=== PATIENT | female | born 1980 | race Asian ===

== ENCOUNTER 2018-03-02 13:55 | Emergency (ER) | payer BC ==
--- NOTE | 2018-03-02 16:02 | ER Document Report ---
ED Eye Complaint - General Chief Complaint: Eye Pain Stated Complaint: POSSIBLE EYE INFECTION Time Seen by Provider: 03/02/18 15:56 Mode of Arrival: Ambulatory Notes: 37-year-old female presented ED for complaint of left eye pain and irritation for week. She states she has had a stye for more than a week but it just started hurting about 7 days ago. She states that the eye on top and lower started swelling about 3 or 4 days ago. She states it has been draining for a couple days. She also has a bump on her face it has been about 6 or 8 months. TRAVEL OUTSIDE OF THE [place] IN LAST 30 DAYS: No - HPI Onset: Last week Eye location: Left Injury: No Quality of pain: Burning, Pressure, Sharp Severity: Moderate Pain Level: 3 Associated symptoms: Burning, Itching, Pain, Matting, Eyelid swelling - Related Data Allergies/Adverse Reactions: No Known Allergies Allergy (Verified 03/02/18 13:58) Past Medical History - General Information source: Patient - Social History Smoking Status: Current Every Day Smoker Cigarette use (# per day): Yes - 7 cig a day Chew tobacco use (# tins/day): No Smoking Education Provided: Yes - 4 min Frequency of alcohol use: Social Drug Abuse: None Occupation: call center Lives with: Friend Family History: Reviewed & Not Pertinent Patient has suicidal ideation: No Patient has homicidal ideation: No - Past Medical History Cardiac Medical History: Reports: None Pulmonary Medical History: Reports: None Neurological Medical History: Reports: None Endocrine Medical History: Reports: Hx Diabetes Mellitus Type 2 Renal/ Medical History: Reports: None Malignancy Medical History: Reports: None GI Medical History: Reports: None Musculoskeletal Medical History: Reports Hx Musculoskeletal Deformity, Reports Hx Musculoskeletal Trauma Skin Medical History: Reports None Psychiatric Medical History: Reports: None Traumatic Medical History: Reports: Hx Fractures - finger Infectious Medical History: Reports: None Past Surgical History: Reports: Hx Cholecystectomy, Hx Orthopedic Surgery - carpal tunnel - Immunizations Hx Diphtheria, Pertussis, Tetanus Vaccination: No Review of Systems - Review of Systems Constitutional: No symptoms reported EENT: Eye pain, Eye discharge, Blurred vision Cardiovascular: No symptoms reported Respiratory: No symptoms reported Gastrointestinal: No symptoms reported Genitourinary: No symptoms reported Female Genitourinary: No symptoms reported Musculoskeletal: No symptoms reported Skin: No symptoms reported Hematologic/Lymphatic: No symptoms reported Neurological/Psychological: No symptoms reported Physical Exam - Vital signs Vitals: Temp Pulse Resp BP Pulse Ox 98.7 F 73 20 150/99 H 98 03/02/18 14:31 03/02/18 14:31 03/02/18 14:31 03/02/18 14:31 03/02/18 14:31 Interpretation: Normal - General General appearance: Appears well, Alert - HEENT Head: Normocephalic, Atraumatic Eyes: Normal. No: Pale conjunctiva, Periorbital ecchymosis, Periorbital edema Conjunctiva: Injected, Purulent discharge Cornea: No: Corneal ulcer, Dendrite, Embedded foreign body, Flourescein stain uptake, Opacified, Superficial foreign body Pupils: PERRL Visual acuity- Right eye: 20/15 Visual acuity- Left eye: 20/20 Visual acuity- Both eyes: 20/20 Corrective lenses worn: No Ears: Normal External canal: Normal Tympanic membrane: Normal Sinus: Normal Nasal: Normal Mouth/Lips: Normal Mucous membranes: Normal Pharynx: Normal Neck: Normal - Respiratory Respiratory status: No respiratory distress Chest status: Nontender Breath sounds: Normal Chest palpation: Normal - Cardiovascular Rhythm: Regular Heart sounds: Normal auscultation Murmur: No - Abdominal Inspection: Normal Distension: No distension Bowel sounds: Normal Tenderness: Nontender Organomegaly: No organomegaly - Back Back: Normal, Nontender - Extremities General upper extremity: Normal inspection, Nontender, Normal color, Normal ROM , Normal temperature General lower extremity: Normal inspection, Nontender, Normal color, Normal ROM , Normal temperature, Normal weight bearing. No: Gregory's sign - Neurological Neuro grossly intact: Yes Cognition: Normal Orientation: AAOx4 [place] Coma Scale Eye Opening: Spontaneous Elissa Coma Scale Verbal: Oriented [place] Coma Scale Motor: Obeys Commands [place] Coma Scale Total: 15 Speech: Normal Motor strength normal: LUE, RUE, LLE, RLE Sensory: Normal - Psychological Associated symptoms: Normal affect, Normal mood - Skin Skin Temperature: Warm Skin Moisture: Dry Skin Color: Normal Course - Vital Signs Vital signs: Temp Pulse Resp BP Pulse Ox 98.7 F 85 20 160/90 H 99 03/02/18 14:31 03/02/18 14:32 03/02/18 14:31 03/02/18 16:18 03/02/18 14:32 Discharge - Discharge Clinical Impression: Sty, external Qualifiers: Laterality: left Eyelid: upper Qualified Code(s): H00.014 - Hordeolum externum left upper eyelid Condition: Stable Disposition: HOME, SELF-CARE Additional Instructions: Sty Your examination reveals that you have a sty. This is an infection of a hair follicle in the eyelid. As the infection progresses, it forms an abscess along the edge of the eyelid. A sty causes a lot of swelling and tenderness. As the body fights the infection, a lump forms. The knot slowly goes away over a couple of weeks. Treatment includes applying warm compresses to the eye for 10 to 15 minutes every two or three hours. Usually, the infection will drain from the abscess spontaneously, however, some sties require surgical drainage. You may be given antibiotic eye drops to prevent the infection from spreading to the surface of the eye. If the doctor is concerned that the infection is severe, you may be given antibiotics by mouth or shot. Call the doctor at once if vision decreases, if swelling becomes severe, or if eye pain becomes severe. See the doctor for follow-up should you fail to improve as expected. EYEDROP USE: Eyedrops are most easily applied by pulling down on the cheek just below the lower eyelid. The lower lid will pop out to form a pouch into which you can drop the medicine. A small brief sting is not unusual, especially if the eye is reddened and irritated already. Use the drops exactly as recommended. You should see the doctor at once if there is a decrease in vision, swelling of the eye, or an increase in discomfort. ANTIBIOTIC THERAPY: You have been given an antibiotic prescription. It's important that you take all the medication, unless instructed otherwise by your physician. Failure to complete the entire course can result in relapse of your condition. Common side effects of antibiotics include nausea, intestinal cramping, or diarrhea. Women may develop vaginal yeast infections, and babies can get yeast (thrush) in the mouth following the use of antibiotics. Contact your physician if you develop significant side effects from this medication. Allergy to this antibiotic can result in hives, wheezing, faintness, or itching. If symptoms of allergy occur, stop the medication and call the doctor. Warm Packs After approximately two days, apply gentle heat (such as a heating pad or hot water bottle) for about 20 to 30 minutes about every two hours -- at least four times daily. Warmth and elevation will help you make a more rapid recovery , and will ease the pain considerably. Do not use HOT heat, and never apply heat for longer than 30 minutes. The continuous heat can invisibly damage skin and muscles -- even when no burn is seen on the surface. Damaged muscles can make you MORE sore. FOLLOW-UP CARE: If you have been referred to a physician for follow-up care, call the physician s office for an appointment as you were instructed or within the next two days. If you experience worsening or a significant change in your symptoms, notify the physician immediately or return to the Emergency Department at any time for re-evaluation. Prescriptions: Gentamicin Sulfate [Garamycin 0.3% Oph Soln 5 ml] 1 drop LFT_EYE QID #1 bottle Forms: Elevated Blood Pressure, Smoking Cessation Education, Return to Work Referrals: ALIREZA CHAMBERLAIN, DO [ACTIVE STAFF] - Follow up as needed
[2018-03-02] MEDS ORDERED: IBUPROFEN 800 MG TABLET PO ONE (16:06)
[2018-03-02] MEDS ORDERED: GENTAMICIN SULFATE 0.3% OPH SOLN (5 ML/ER DISP) OS ONE (16:15)
[2018-03-02 16:19] VITALS: BP 160/90
[2018-03-02] MEDS ORDERED: GENTAMICIN SULFATE 0.3% OPH SOLN (5 ML/ER DISP) OS SCH (18:00)
== END 2018-03-02 16:22 | disposition home or self-care (01) ==
LOC: ER 13:55
DX: H00.014 Hordeolum externum left upper eyelid (principal); H57.12 Ocular pain, left eye; F17.210 Nicotine dependence, cigarettes, uncomplicated; E11.9 Type 2 diabetes mellitus without complications; Z90.49 Acquired absence of other specified parts of digestive tract
CPT/HCPCS: 99406; 99283; J3490

== ENCOUNTER 2018-03-13 03:16 | Emergency (ER) | payer BC ==
[2018-03-13 03:22] VITALS: BP 137/91
--- NOTE | 2018-03-13 04:07 | ER Document Report ---
ED General - General Chief Complaint: Eye Problem Stated Complaint: EYE PROBLEM Notes: Patient is a pleasant 37-year-old female presents with complaint that she sneezed and felt some bloody drainage coming from around her left eye. Said that has since stopped. She denies any blurred vision. She has no other complaints at this time. She currently denies any pain in her eye at this time. TRAVEL OUTSIDE OF THE [place] IN LAST 30 DAYS: No - Related Data Allergies/Adverse Reactions: No Known Allergies Allergy (Verified 03/02/18 13:58) Past Medical History - Social History Smoking Status: Unknown if Ever Smoked Frequency of alcohol use: None Drug Abuse: None Family History: Reviewed & Not Pertinent Endocrine Medical History: Reports: Hx Diabetes Mellitus Type 2 Renal/ Medical History: Denies: Hx Peritoneal Dialysis Musculoskeletal Medical History: Reports Hx Musculoskeletal Deformity, Reports Hx Musculoskeletal Trauma Traumatic Medical History: Reports: Hx Fractures - finger Past Surgical History: Reports: Hx Cholecystectomy, Hx Orthopedic Surgery - carpal tunnel - Immunizations Hx Diphtheria, Pertussis, Tetanus Vaccination: No Review of Systems - Review of Systems Notes: My Normal Review Basic REVIEW OF SYSTEMS: CONSTITUTIONAL : Denies fever, chills, or sweats. Denies recent illness. EENT: Blood-tinged drainage from around the left eye. HEMATOLOGIC : Denies easy bruising or bleeding. NEUROLOGICAL: Denies altered mental status or loss of consciousness. Denies headache. ALL OTHER SYSTEMS REVIEWED AND NEGATIVE. Physical Exam - Vital signs Vitals: Temp Pulse Resp BP Pulse Ox 98.6 F 90 18 137/91 H 98 03/13/18 03:21 03/13/18 03:21 03/13/18 03:21 03/13/18 03:21 03/13/18 03:21 - Notes Notes: General Appearance: Well nourished, alert, cooperative, no acute distress, no obvious discomfort. Appearing. Vitals: reviewed, See vital signs table. Head: no swelling or tenderness to the head Eyes: PERRL, EOMI, Conjuctiva clear. Hyphema. No pain with extraocular motion. Patient has what appears to be a small area of irritation on the underside of the lateral aspect of the upper lid. This appears consistent with where the patient probably had small capillary rupture which most likely cause the blood-tinged fluid that was coming from her eye. No active bleeding at this time. No foreign body seen. Skin: warm, dry, appropriate color, no rash Neuro: speech clear, oriented x 3, normal affect, responds appropriately to questions. Course - Re-evaluation Re-evalutation: 03/13/18 06:48 Patient's visual acuity is normal. She has no pain with extraocular motion. She has no signs of significant trauma to the eye. I suspect she probably had a small capillary rupture when she coughed is close blood-tinged fluid coming from around the eye. There is a small area of appears to be irritation on the underside of the upper lid over the lateral canthus. Suspect this is where the blood came from. There is no active bleeding at this time I feel she is safe to be discharged home. She is encouraged to return to ER if she has eye pain, blurred vision, or recurrence of her symptoms. Patient agrees with plan will be discharged home. Dictation of this chart was performed using voice recognition software; therefore, there may be some unintended grammatical errors. - Vital Signs Vital signs: Temp Pulse Resp BP Pulse Ox 98.6 F 90 18 137/91 H 98 03/13/18 03:21 03/13/18 03:21 03/13/18 03:21 03/13/18 03:21 03/13/18 03:21 Discharge - Discharge Clinical Impression: Left eye complaint Condition: Good Disposition: HOME, SELF-CARE Additional Instructions: Please return to the ER if you have blurred vision, eye pain, or recurrent bleeding from around your eye.
== END 2018-03-13 04:32 | disposition home or self-care (01) ==
LOC: ER 03:16
DX: H57.8 Other specified disorders of eye and adnexa (principal); E11.9 Type 2 diabetes mellitus without complications
CPT/HCPCS: 99283

== ENCOUNTER 2018-03-26 13:58 | Emergency (ER) | payer BC ==
[2018-03-26] MEDS ORDERED: SULFAMETHOXAZOLE/TRIMETHOPRIM 800-160 MG TABLET PO ONE (14:52)
[2018-03-26] MEDS ORDERED: OXYCODONE-ACETAMINOPHEN 5-325 MG TABLET PO ONE (14:52)
[2018-03-26] MEDS ORDERED: CEPHALEXIN 500 MG CAPSULE PO ONE (14:52)
--- NOTE | 2018-03-26 14:54 | ER Document Report ---
HPI - HPI Patient complains to provider of: Breast infection Onset: Last week Onset/Duration: Persistent Quality of pain: Achy Pain Level: 2 Context: Patient complains of breast infection to the left breast for the past week. Patient denies any fever. Patient did attempt to stick a needle in the area unsuccessfully today. Patient denies any personal history of breast cancer. Associated Symptoms: Other - Left breast infection. denies: Fever Exacerbated by: Denies Relieved by: Denies Similar symptoms previously: No Recently seen / treated by doctor: No - ROS ROS below otherwise negative: Yes Systems Reviewed and Negative: Yes All other systems reviewed and negative - CONSTITUTIONAL Constitutional: DENIES: Fever, Chills - CARDIOVASCULAR Cardiovascular: REPORTS: Chest pain - left breast - REPRODUCTIVE Reproductive: DENIES: : - DERM Skin Color: Erythema Notes: abscess to left breast Past Medical History - General Information source: Patient - Social History Smoking Status: Current Every Day Smoker Smoking Education Provided: Yes Frequency of alcohol use: Occasional Drug Abuse: None Occupation: customer service Family History: Reviewed & Not Pertinent Endocrine Medical History: Reports: Hx Diabetes Mellitus Type 2 Renal/ Medical History: Denies: Hx Peritoneal Dialysis Musculoskeletal Medical History: Reports Hx Musculoskeletal Deformity, Reports Hx Musculoskeletal Trauma Traumatic Medical History: Reports: Hx Fractures - finger Past Surgical History: Reports: Hx Cholecystectomy, Hx Orthopedic Surgery - carpal tunnel - Immunizations Hx Diphtheria, Pertussis, Tetanus Vaccination: No Vertical Provider Document - CONSTITUTIONAL Agree With Documented VS: Yes Exam Limitations: No Limitations General Appearance: WD/WN, No Apparent Distress - INFECTION CONTROL TRAVEL OUTSIDE OF THE [place] IN LAST 30 DAYS: No - HEENT HEENT: Atraumatic, Normocephalic - NECK Neck: Normal Inspection - RESPIRATORY Respiratory: Breath Sounds Normal, No Respiratory Distress - CARDIOVASCULAR Cardiovascular: Regular Rate, Regular Rhythm Pulses: Normal: Radial - BACK Back: Normal Inspection - MUSCULOSKELETAL/EXTREMETIES Musculoskeletal/Extremeties: MAEW - NEURO Level of Consciousness: Awake, Alert, Appropriate Motor/Sensory: No Motor Deficit - DERM Integumentary: Warm, Dry Adult Front & Back Diagram: 1 - Erythematous crusted lesion to the 4 o'clock position of left breast with surrounding erythema concerning for cellulitic abscess. Faint area of erythema does extend upwards towards the 2 o'clock position of the breast Course - Re-evaluation Re-evalutation: 03/26/18 17:[address] Vaelnte regarding patient presentation and diagnostic evaluation. Patient had been given crackers per nursing staff. Dr. Valente recommends giving IV fluids and will be in to evaluate patient. 03/26/18 19:07 Dr. Valente evaluated patient in room and plans to do a conscious sedation incision and drainage procedure to the left breast. Request that consent form be obtained. associate professor of english advised of surgeons plans and patient will be moved to bed 10. 03/26/18 19:42 associate professor of english advised that Dr. Valente is requesting Versed and pain medication to bedside for procedure. RN instructed to call surgeon, so he can discuss what he needs for in room procedure. 03/26/18 21:[address] Valente who states that he will follow up with patient in the office. Agrees with plan to give her pain medication as well as Bactrim and Keflex. 03/26/18 21:[address] Valente who recommends having patient pulled the packing out in the shower tomorrow and irrigate the wound. - Vital Signs Vital signs: Temp Pulse Resp BP Pulse Ox 97.5 F 77 16 140/97 H 99 03/26/18 14:03 03/26/18 14:03 03/26/18 14:03 03/26/18 14:03 03/26/18 14:03 - Laboratory Result Diagrams: 03/26/18 16:30 03/26/18 16:30 Laboratory results interpreted by me: 03/26/18 22:13 Labs- Entire Visit 03/26/18 03/26/18 16:30 16:30 WBC 11.5 H RBC 4.72 Hgb 14.5 Hct 42.3 MCV 90 MCH 30.8 MCHC 34.3 RDW 13.4 Plt Count 304 Seg Neutrophils % 68.1 Lymphocytes % 25.0 Monocytes % 5.2 Eosinophils % 1.1 Basophils % 0.6 Absolute Neutrophils 7.8 Absolute Lymphocytes 2.9 Absolute Monocytes 0.6 Absolute Eosinophils 0.1 Absolute Basophils 0.1 Sodium 142.8 Potassium 4.0 Chloride 106 Carbon Dioxide 25 Anion Gap 12 BUN 10 Creatinine 0.60 Est GFR ( Amer) > 60 Est GFR (Non-Af Amer) > 60 Glucose 137 H Calcium 9.1 - Diagnostic Test Radiology reviewed: Reports reviewed Discharge - Discharge Clinical Impression: Breast abscess Condition: Stable Disposition: HOME, SELF-CARE Instructions: Abscess ([facility]), Cephalexin ([facility]), Oral Narcotic Medication ([facility]), Post Incision and Drainage, Trimethoprim-Sulfa ([facility]) Additional Instructions: Return immediately for any new or worsening symptoms Followup with your primary care provider, call tomorrow to make a followup appointment Remove packing tomorrow in the shower and irrigate wound. Take a stool softener [id number] daily Follow-up with Dr. Valente in the clinic, call Tuesday to make a follow-up appointment. Prescriptions: Cephalexin Monohydrate [Keflex 500 mg Capsule] 500 mg PO Q6H 7 Days capsule Oxycodone HCl/Acetaminophen [Percocet 5-325 mg Tablet] 1 tab PO ASDIR PRN #15 tablet PRN Reason: Sulfamethoxazole/Trimethoprim [Bactrim Ds Tablet] 1 each PO BID #20 tablet Forms: Smoking Cessation Education, Return to Work Referrals: JESSIE VALENTE MD [ACTIVE STAFF] - Follow up in 3-5 days
--- NOTE | 2018-03-26 16:40 | RADIOLOGY REPORT (SQ) ---
EXAM DESCRIPTION: U/S BREAST UNILATERAL LIMITED COMPLETED DATE/TIME: 03/26/2018 3:36 pm REASON FOR STUDY: eval ?abscess COMPARISON: None TECHNIQUE: Ultrasound of the right breast was performed in the area of clinical concern, including c olor flow, grayscale, and cine images saved to pac's. LIMITATIONS: None. FINDINGS: Patient has a palpable abnormality in the right breast 5 o'clock position 5 cm from the ni pple. Ultrasound of this area demonstrates a hypoechoic subcutaneous fluid collection with ill-defin ed margins measuring 3.3 x 3 x 1 cm in size, worrisome for subcutaneous abscess. No deeper breast tissue abnormalities identified at ultrasound IMPRESSION: Hypoechoic fluid collection just deep to the skin surface right breast 5 o'clock positi on 5 cm from the nipple worrisome for abscess. BIRAD: 1 Negative. RECOMMENDATION: RECOMMENDED FOLLOW-UP: Follow-up as clinically indicated. COMMENT: The [employer] ([employer]) has developed recommendations for screening MRI of the breasts in certain patient populations, to be used in conjunction with mammography. Breast MRI s urveillance may be appropriate for women with more than 20% lifetime risk of developing breast cancer as determined by genetic testing, significant family history of the disease, or history of mantle r adiation for Hodgkins Disease. ACR Practice Guidelines 2008. TECHNICAL DOCUMENTATION: FINDING NUMBER: (1) ASSESSMENT: (1) JOB ID: [id number] [employer]- All Rights Reserved Reading location - IP/workstation name: [email or web address]
[2018-03-26 16:46] LABS: ABSOLUTE BASOPHILS # (AUTO) 0.1 10^3/uL (0.0-0.2); ABSOLUTE EOSINOPHILS # (AUTO) 0.1 10^3/uL (0.0-0.6); ABSOLUTE LYMPHOCYTES (AUTO) 2.9 10^3/uL (0.5-4.7); ABSOLUTE MONOCYTES (AUTO) 0.6 10^3/uL (0.1-1.4); ABSOLUTE NEUT (AUTO) 7.8 10^3/uL (1.7-8.2); BASOPHILS % (AUTO) 0.6 % (0-2); EOSINOPHILS % (AUTO) 1.1 % (0-6); HEMATOCRIT 42.3 % (36.0-47.0); HEMOGLOBIN 14.5 g/dL (12.0-15.5); MEAN CORPUSCULAR HEMOGLOBIN 30.8 pg (27.0-33.4); MEAN CORPUSCULAR HGB CONC 34.3 g/dL (32.0-36.0); MEAN CORPUSCULAR VOLUME 90 fl (80-97); MONOCYTES % (AUTO) 5.2 % (3-13); PLATELET COUNT 304 10^3/uL (150-450); RED BLOOD COUNT 4.72 10^6/uL (3.72-5.28); RED CELL DISTRIBUTION WIDTH 13.4 % (11.5-14.0); SEGMENTED NEUTROPHILS % (AUTO) 68.1 % (42-78); TOTAL CELLS COUNTED % (AUTO) 100 %; WHITE BLOOD COUNT 11.5 10^3/uL (4.0-10.5)
[2018-03-26 17:11] LABS: ANION GAP 12 (5-19); BLOOD UREA NITROGEN 10 mg/dL (7-20); CALCIUM 9.1 mg/dL (8.4-10.2); CARBON DIOXIDE 25 mmol/L (22-30); CHLORIDE 106 mmol/L (98-107); GLUCOSE 137 mg/dL (75-110); SODIUM 142.8 mmol/L (137-145)
[2018-03-26] MEDS ORDERED: NORMAL SALINE 1000 ML 1,000 ML IV ONE (17:34)
[2018-03-26] MEDS ORDERED: MIDAZOLAM 2 MG/2 ML INJ IV ONE (19:57)
[2018-03-26] MEDS ORDERED: FENTANYL CITRATE INJ/PF 100 MCG/2 ML AMPUL IV ONE (19:59)
[2018-03-26] MEDS ORDERED: LIDOCAINE 1% INJ-PF (10 MG/ML) 30 ML SDV INJ ONE (20:00)
[2018-03-26] MEDS ORDERED: MIDAZOLAM 2 MG/2 ML INJ ONE (20:34)
[2018-03-26] MEDS ORDERED: MORPHINE SULFATE 10 MG/ML INJ IV ONE (21:06)
--- NOTE | 2018-03-26 21:11 | Operative Report ---
Operative Report DATE OF SURGERY: 03/26/18 PREOPERATIVE DIAGNOSIS: Left breast abscess in diabetic female POSTOPERATIVE DIAGNOSIS: Same suspicious for MRSA infection OPERATION: 1. Operative debridement of left breast abscess including skin and subcutaneous tissue. 2. Culture wound for Gram stain sensitivity. SURGEON: JESSIE MCPHERSON ANESTHESIA: Moderate Sedation TISSUE REMOVED OR ALTERED: Necrotic skin and subcutaneous tissue COMPLICATIONS: None ESTIMATED BLOOD LOSS: Scant INTRAOPERATIVE FINDINGS: See below PROCEDURE: Patient was taken from room 42 to room 10, monitoring devices attached, and preparation made for conscious sedation Surgical plan and surgical timeout conducted The patient was placed in the recumbent position left arm abducted and left breast elevated. The left breast abscess mid to lateral position 4:00 left breast was prepped with Betadine. Appropriate level of conscious sedation was induced. The skin was anesthetized with 1% plain lidocaine using a 22-gauge needle. An ellipse of skin was excised with a #10 blade approximately 2-1/2 cm in diameter. The underlying abscess was broken into, loculations broken up with hemostats, and index finger. Wound irrigated, with excisional debridement using scissors and a #10 blade of several lobules of. Wound cultured and sent for Gram stain sensitivity, wound repacked with moist gauze in the cavity, then cover with dry dressings. Impression: Left breast abscess drained; suspicious for MRSA Recommendations: 1. Patient may be discharged home on p.o. antibiotics; follow-up culture results and tailor antibiotics accordingly 2. Patient to return to [facility] [facility] in 1 week to see EMETERIO Sherwood for wound check 3. Suggested patient remove packing and start dressing changes daily after taking a shower. 4. Pain medicine prescribed by the emergency room provider
[2018-03-26 22:58] VITALS: BP 126/76
== END 2018-03-26 23:03 | disposition home or self-care (01) ==
LOC: ER 13:58
DX: N61.1 Abscess of the breast and nipple (principal); E11.9 Type 2 diabetes mellitus without complications; F17.200 Nicotine dependence, unspecified, uncomplicated
CPT/HCPCS: 99284; 96361; 99153; 99152; 96374; 36415; 87070; 87205; 85025; 87077; 80048; 87186; 76642; 10060; A6266; J2250; J3010; J3490; J2270; J7030

== ENCOUNTER 2018-06-19 21:25 | Emergency (ER) | payer BC ==
[2018-06-20 00:41] VITALS: BP 149/94
[2018-06-20] MEDS ORDERED: LIDOCAINE 1%/EPINEPHRINE INJ 20 ML VIAL INJ ONE (01:31)
--- NOTE | 2018-06-20 02:24 | ER Document Report ---
ED General - General Chief Complaint: Abscess Stated Complaint: POSSIBLE ABSCESS Mode of Arrival: Ambulatory Information source: Patient Notes: 38-year-old female with a history of diabetes and skin cysts the emergency room with swelling to the left face. Patient states it has been going on for a few days. She denies any fever, chills, nausea or vomiting. She denies any redness. TRAVEL OUTSIDE OF THE [place] IN LAST 30 DAYS: No - HPI Onset: Last week Onset/Duration: Gradual Quality of pain: No pain Severity: None Pain Level: Denies Associated symptoms: denies: Chest pain, Fever, Shortness of breath Exacerbated by: Denies Relieved by: Denies Similar symptoms previously: No Recently seen / treated by doctor: No - Related Data Allergies/Adverse Reactions: No Known Allergies Allergy (Verified 06/20/18 00:43) Past Medical History - General Information source: Patient - Social History Smoking Status: Unknown if Ever Smoked Cigarette use (# per day): No Chew tobacco use (# tins/day): No Frequency of alcohol use: None Drug Abuse: None Lives with: Family Family History: Reviewed & Not Pertinent Patient has suicidal ideation: No Patient has homicidal ideation: No - Past Medical History Cardiac Medical History: Reports: None Pulmonary Medical History: Reports: None EENT Medical History: Reports: None Neurological Medical History: Reports: None Endocrine Medical History: Reports: Hx Diabetes Mellitus Type 2 Renal/ Medical History: Denies: Hx Peritoneal Dialysis Musculoskeletal Medical History: Reports Hx Musculoskeletal Deformity, Reports Hx Musculoskeletal Trauma Traumatic Medical History: Reports: Hx Fractures - finger Past Surgical History: Reports: Hx Cholecystectomy, Hx Orthopedic Surgery - carpal tunnel - Immunizations Hx Diphtheria, Pertussis, Tetanus Vaccination: No Review of Systems - Review of Systems Constitutional: denies: Chills, Fever EENT: No symptoms reported Cardiovascular: No symptoms reported Respiratory: No symptoms reported Gastrointestinal: No symptoms reported Genitourinary: No symptoms reported Female Genitourinary: No symptoms reported Musculoskeletal: No symptoms reported Skin: See HPI Hematologic/Lymphatic: No symptoms reported Neurological/Psychological: No symptoms reported Physical Exam - Vital signs Vitals: Temp Pulse Resp BP Pulse Ox 98.5 F 82 16 136/102 H 98 06/19/18 21:41 06/19/18 21:41 06/19/18 21:41 06/19/18 21:41 06/19/18 21:41 Notes: Physical exam: GENERAL: Patient is alert and oriented x3, no acute distress HEAD: Atraumatic, normocephalic. EYES: Pupils equal round and reactive to light, extraocular movements intact, sclera anicteric, conjunctiva are normal. ENT: TMs normal, nares patent, oropharynx clear without exudates. Moist mucous membranes. NECK: Normal range of motion, supple without obvious mass or JVD. Face skin: Patient has a 1 cm area of swelling to the left cheek just lateral to the upper lip. There is no overlying erythema. There is no fluctuance. There is no overlying warmth. There is no drainage. Oral cavity: There is no swelling on the inside of the mouth. No obvious dental caries. Course - Re-evaluation Re-evalutation: 06/20/18 02:51 The drainage from the cyst appeared noninfectious. A wound culture was sent. There was never any overlying warmth or erythema so the suspicion for infection is actually low at this point. Given this we will hold on antibiotics and wait for the wound culture. I have given the patient good instructions to return if this site becomes red, swollen any pus discharge or if she develops fever. I have also given her a referral to the plastic surgeon. - Vital Signs Vital signs: Temp Pulse Resp BP Pulse Ox 98.1 F 79 18 149/94 H 97 06/20/18 00:40 06/20/18 00:40 06/20/18 00:40 06/20/18 00:40 06/20/18 00:40 Procedures - Incision and Drainage Left Face Type: Simple Anesthetic type: 1% Lidocaine w/epi mL's of anesthetic: 5 Blade size: 11 I&D procedure: Shurclens applied Incision Method: Incision made by scalpel Amount/type of drainage: Serosanguineous drainage. No pus. Notes: 06/20/18 02:51 Culture was sent. Discharge - Discharge Clinical Impression: Left facial cyst Condition: Stable Disposition: HOME, SELF-CARE Additional Instructions: As we discussed, the fluid that was liberated today did not appear to be infectious. We did send a wound culture and we will call you if it grows anything out. In the meantime, you can wash the area with soap and water. You can put heat pads over the area if you get any relief or even ice over the area. Return to the emergency room if the swelling increases or if you start developing fever (temperature greater than 100.5) or there is increasing swelling with redness or any concerns or getting worse. Referrals: TAMI DEVI MD [ACTIVE STAFF] - Follow up as needed (This is a number of a plastic surgeon if the area increases in size.)
== END 2018-06-20 02:45 | disposition home or self-care (01) ==
LOC: ER 21:25
DX: L72.9 Follicular cyst of the skin and subcutaneous tissue, unspecified (principal); E11.9 Type 2 diabetes mellitus without complications
CPT/HCPCS: 99283; 87070; 87205; 10060; J3490

== ENCOUNTER 2018-08-04 12:52 | Emergency (ER) | payer BC ==
[2018-08-04] MEDS ORDERED: ACETAMINOPHEN 325 MG TABLET PO ONE (14:06)
--- NOTE | 2018-08-04 14:08 | ER Document Report ---
ED Medical Screen (RME) - General Chief Complaint: Vaginal Pain Stated Complaint: LOW ABDOMINAL PAIN Time Seen by Provider: 08/04/18 14:02 TRAVEL OUTSIDE OF THE [place] IN LAST 30 DAYS: No - HPI Notes: 08/04/18 14:07 Patient is a 38-year-old female that presents to the emergency department for chief complaint of lower abdominal pain. Patient reports sharp lower abdominal pain that started this morning. It is constant with periods of waxing and waning. She states the pain is worse when she urinates but it does not hurt at her vaginal or urethral area with urination. She denies any external vaginal complaints. She denies vaginal discharge. She is nauseated with no vomiting or fevers.. ROS: GENERAL: Denies fever of chills CV: Denies chest pain PHYSICAL EXAMINATION: GENERAL: Well-appearing, well-nourished and in no acute distress. HEAD: Atraumatic, normocephalic. EYES: Pupils equal round extraocular movements intact, conjunctiva are normal. ENT: Nares patent NECK: Normal range of motion LUNGS: No respiratory distress Musculoskeletal: Normal range of motion NEUROLOGICAL: Normal speech, normal gait. PSYCH: Normal mood, normal affect. MDM: Patient seen and examined for rapid initial assessment. Vital signs reviewed. A comprehensive ED assessment and evaluation of the patient, analysis of test results and completion of the medical decision making process will be conducted by additional ED providers. - Related Data Allergies/Adverse Reactions: No Known Allergies Allergy (Verified 06/20/18 00:43) Past Medical History - Social History Chew tobacco use (# tins/day): No Frequency of alcohol use: Social Drug Abuse: None Endocrine Medical History: Reports: Hx Diabetes Mellitus Type 2 Renal/ Medical History: Denies: Hx Peritoneal Dialysis Musculoskeltal Medical History: Reports Hx Musculoskeletal Deformity, Reports Hx Musculoskeletal Trauma Traumatic Medical History: Reports: Hx Fractures - finger Past Surgical History: Reports: Hx Cholecystectomy, Hx Orthopedic Surgery - carpal tunnel - Immunizations Hx Diphtheria, Pertussis, Tetanus Vaccination: No Physical Exam - Vital signs Vitals: Temp Pulse Resp BP Pulse Ox 98.4 F 86 16 140/95 H 98 08/04/18 13:01 08/04/18 13:01 08/04/18 13:01 08/04/18 13:01 08/04/18 13:01 Course - Vital Signs Vital signs: Temp Pulse Resp BP Pulse Ox 98.4 F 86 16 140/95 H 98 08/04/18 13:01 08/04/18 13:01 08/04/18 14:02 08/04/18 13:01 08/04/18 13:01
[2018-08-04 14:51] LABS: AMORPHOUS SEDIMENT,URINE TRACE /HPF; APPEARANCE,URINE CLOUDY; BILIRUBIN,URINE NEGATIVE (NEGATIVE); GLUCOSE, URINE NEGATIVE (NEGATIVE); KETONES,URINE NEGATIVE (NEGATIVE); LEUKOCYTE ESTERASE,URINE NEGATIVE (NEGATIVE); NITRITE,URINE NEGATIVE (NEGATIVE); PROTEIN,URINE NEGATIVE (NEGATIVE); UROBILINOGEN,URINE NEGATIVE mg/dL (<2.0)
[2018-08-04 14:52] LABS: COLOR,URINE YELLOW
--- NOTE | 2018-08-04 15:57 | ER Document Report ---
ED General - General Chief Complaint: Vaginal Pain Stated Complaint: LOW ABDOMINAL PAIN Time Seen by Provider: 08/04/18 14:02 Notes: Patient is a 38-year-old female who presents to the emergency department with a chief complaint of vaginal pain. Her symptoms started this morning. She also has some associated cramping with her symptoms. She states that the Tylenol she was received in triage has helped her. She denies any vaginal bleeding or discharge. She is sexually active. Her last menstrual cycle was 2 weeks ago. She denies any dysuria, vaginal itching, or upper abdominal pain. TRAVEL OUTSIDE OF THE [place] IN LAST 30 DAYS: No - Related Data Allergies/Adverse Reactions: No Known Allergies Allergy (Verified 06/20/18 00:43) Past Medical History - Social History Smoking Status: Current Every Day Smoker Chew tobacco use (# tins/day): No Frequency of alcohol use: Social Drug Abuse: None Family History: Reviewed & Not Pertinent Patient has suicidal ideation: No Patient has homicidal ideation: No Endocrine Medical History: Reports: Hx Diabetes Mellitus Type 2 Renal/ Medical History: Denies: Hx Peritoneal Dialysis Musculoskeletal Medical History: Reports Hx Musculoskeletal Deformity, Reports Hx Musculoskeletal Trauma Traumatic Medical History: Reports: Hx Fractures - finger Past Surgical History: Reports: Hx Cholecystectomy, Hx Orthopedic Surgery - carpal tunnel - Immunizations Hx Diphtheria, Pertussis, Tetanus Vaccination: No Review of Systems - Review of Systems Notes: REVIEW OF SYSTEMS: CONSTITUTIONAL : Denies recent illness. Denies recent unintentional weight loss. Denies fever, chills, or sweats. EENT: Denies eye, ear, throat, or mouth pain, discharge, or symptoms. Denies nasal or sinus congestion. CARDIOVASCULAR: Denies chest pain. RESPIRATORY: Denies shortness of breath, cough, congestion, difficulty breathing, or wheezing. GASTROINTESTINAL: See HPI GENITOURINARY: See HPI FEMALE GENITOURINARY: See HPI MUSCULOSKELETAL: Denies neck and back pain. Denies joint pain or swelling. SKIN: Denies rash, itchiness, or lesions HEMATOLOGIC : Denies easy bruising or bleeding. LYMPHATIC: Denies swollen, painful, enlarged glands. NEUROLOGICAL: Denies no numbness or tingling denies weakness. Denies headache. Denies altered mental status. Denies alteration in speech. PSYCHIATRIC: Denies stress, anxiety, alteration in sleep patterns, or depression. All other systems reviewed and negative. Physical Exam - Vital signs Vitals: Temp Pulse Resp BP Pulse Ox 98.4 F 86 16 140/95 H 98 08/04/18 13:01 08/04/18 13:01 08/04/18 13:08/04/18 13:08/04/18 13:01 - Notes Notes: PHYSICAL EXAMINATION: GENERAL: Appears well, healthy, well-nourished, no acute distress. HEAD: Normocephalic, atraumatic. EYES: PERRL, conjunctiva normal, all extraocular movements intact, sclera nonicteric ENT: Moist mucous membranes. NECK: Supple, no noticeable swelling, redness, rash. Normal range of motion. LUNGS: Equal breath sounds bilaterally and clear to auscultation. No wheezes rales or rhonchi. CARDIOVASCULAR: S1-S2, regular rate, regular rhythm. Radial pulses 2+, normal. ABDOMEN: Normoactive bowel sounds. Soft, tender pelvic area, no guarding, no rebound tenderness, and no masses palpated. EXTREMITIES: Normal strength and range of motion, no pitting or edema. No cyanosis. NEUROLOGICAL: Moves all extremities upon command. Strength 5/5 in all extremities. PSYCH: Normal mood, normal affect. SKIN: Warm, dry. No rash, lesions, ulcerations noted. Normal skin turgor. FOUNDRY FINISHER: Discharge noted that was milky in color. Course - Re-evaluation Re-evalutation: 08/04/18 16:00 A pelvic ultrasound will be ordered. A pelvic exam was done with JONH Ragland as arc welding machine operator at bedside. Orders have been put in for a wet mount and gonorrhea and chlamydia. 08/04/18 17:10 Patient's wet mount shows 3+ bacteria. Her gonorrhea and Chlamydia labs are pending. I have given her the option of being treated for gonorrhea, chlamydia, and bacteria vaginosis and she is in agreement being empirically treated with azithromycin and Rocephin and being sent home with Flagyl. I do not suspect the patient has pelvic inflammatory disease, tubo-ovarian torsion, or any other life-threatening etiology at this time. Her transvaginal ultrasound is negative. Verbal discharge instructions were given to the patient. They verbalized understanding. They are stable for discharge. 08/04/18 18:23 The patient's gonorrhea and chlamydia have resulted and are negative. I have called the patient and notified her that these laboratory studies are negative. - Vital Signs Vital signs: Temp Pulse Resp BP Pulse Ox 98.2 F 77 16 137/94 H 99 08/04/18 17:48 08/04/18 17:48 08/04/18 17:48 08/04/18 17:48 08/04/18 17:48 Discharge - Discharge Clinical Impression: Vaginal pain Condition: Stable Disposition: HOME, SELF-CARE Additional Instructions: You are seen in the emergency department for vaginal pain. Your low your labs show that you have a bacterial infection in your vagina. You are being treated for all bacterial infections that can be the cause of your pain. You may take Tylenol 1000 mg every 6 hours as needed for your pain. You will be called in regards to your results for gonorrhea and chlamydia. Please do not have sex for the next week. If you develop a fever greater than 100.4 F, continued to have vaginal pain after antibiotic treatment, or have any symptoms that are worrisome to you, please return to the emergency department. Prescriptions: Metronidazole [Flagyl 500 mg Tablet] 500 mg PO Q6H #28 tablet
[2018-08-04 16:21] LABS: T.VAGINALIS (WET MOUNT) NO TRICHOMONAS SEEN; YEAST (WET MOUNT) NO YEAST SEEN
[2018-08-04 16:22] LABS: BACTERIA (WET MOUNT) 3+ BACTERIA SEEN; EPITHELIALS (WET MOUNT) 3+ EPITHELIALS SEEN; WBCS (WET MOUNT) FEW WBCS SEEN
--- NOTE | 2018-08-04 16:57 | RADIOLOGY REPORT (SQ) ---
EXAM DESCRIPTION: U/S NON OB PEL TV W/DOPPLER COMPLETED DATE/TIME: 08/04/2018 4:36 pm REASON FOR STUDY: vaginal pain COMPARISON: None. TECHNIQUE: Dynamic and static grayscale images acquired of the pelvis via transvaginal approach and recorded on PACS. Additional selected color Doppler and spectral images recorded. LIMITATIONS: None. FINDINGS: UTERUS: Contour normal. No mass. ENDOMETRIAL STRIPE: No focal or generalized thickening. No masses. CERVIX: No nabothian cysts. RIGHT OVARY AND DOPPLER: Normal size. No worrisome masses. Normal arterial vascular flow without evid ence for torsion. LEFT OVARY AND DOPPLER: Normal size. No worrisome masses. Normal arterial vascular flow without evide nce for torsion. FREE FLUID: None noted. OTHER: No other significant finding. MEASUREMENTS: UTERUS: 4.5 x 5.2 x 9.8 cm. ENDOMETRIAL STRIPE: 9.8 mm. RIGHT OVARY: 2.2 x 2.3 x 2.6 cm. LEFT OVARY: 2.6 x 3.5 x 3.6 cm. IMPRESSION: NORMAL TRANSVAGINAL PELVIC ULTRASOUND. TECHNICAL DOCUMENTATION: JOB ID: [id number]- All Rights Reserved Rev Reading location - IP/workstation name: [email or web address]
[2018-08-04] MEDS ORDERED: LIDOCAINE 1% INJ-PF (10 MG/ML) 30 ML SDV INJ ONE (17:08)
[2018-08-04] MEDS ORDERED: AZITHROMYCIN 250 MG TABLET PO ONE (17:08)
[2018-08-04] MEDS ORDERED: CEFTRIAXONE INJ 250 MG VIAL IM ONE (17:08)
[2018-08-04 17:49] VITALS: BP 137/94
[2018-08-04 18:25] LABS: CHLAM PCR NOT DETECTED (NOT DETECT); GON PCR NOT DETECTED (NOT DETECT)
== END 2018-08-04 17:49 | disposition home or self-care (01) ==
LOC: ER 12:52
DX: R10.2 Pelvic and perineal pain (principal); R10.30 Lower abdominal pain, unspecified; F17.200 Nicotine dependence, unspecified, uncomplicated; E11.9 Type 2 diabetes mellitus without complications
CPT/HCPCS: 96372; 99284; 87210; 81025; 81001; 87491; 87591; 76830; 93976; J3490; J0696